=== PATIENT | male | born 1965 | race Asian ===

== ENCOUNTER → 2020-10-03 09:09 | Outpatient (CLI) | payer OTHER, SELFPAY ==
--- NOTE | 2020-10-03 | DI.US.S_ITS ---
PROCEDURE: US ABDOMEN COMPLETE INDICATIONS: GASTROESOPHAGEAL REFLUX DISEASE AND GALLSTONES TECHNIQUE: Real-time scanning was performed of the abdominal and retroperitoneal organs, with image documentation. COMPARISON: None. FINDINGS: Liver: Liver is normal in size and homogeneous in echotexture. Gallbladder: The gallbladder contains multiple layering gallstones/sludge. A non mobile stone is noted within the gallbladder neck measuring 7 x 6 millimeters. Biliary ducts: Intrahepatic bile ducts are non-dilated. Extrahepatic bile duct caliber measures 4.4 millimeters. Normal is 6-7 mm or less in diameter, or 10 mm or less post-cholecystectomy. Pancreas: Visualized portions of the pancreas are sonographically normal. Spleen: Spleen is normal in size and homogeneous in echotexture. Kidneys: Kidneys are normal in size and echotexture. Right kidney measures 9.7 cm long; left kidney measures 10.2 cm long. No hydronephrosis or nephrolithiasis. No solid masses. The right kidney has a simple cyst measuring 8 x 11 x 9 millimeters Aorta: Visualized aorta is normal in caliber at less than 3 cm. Iliacs: Proximal common iliac arteries are normal in caliber at less than 2.5 cm. IVC: Intrahepatic inferior vena cava is patent. Miscellaneous: No free abdominal fluid. IMPRESSION: 1. Cholelithiasis without evidence of acute cholecystitis. 2. Simple cyst of the right kidney. Dictated by: Oscar Head M.D. on 10/03/2020 at 12:30 Approved by: Oscar Head M.D. on 10/03/2020 at 12:33
== END ==
PROVIDERS: PCP Family Medicine; Referring Provider Family Medicine; Visit Provider Family Medicine
DX: K80.20 Calculus of gallbladder without cholecystitis without obstruction (principal); K21.9 Gastro-esophageal reflux disease without esophagitis; N28.1 Cyst of kidney, acquired
CPT/HCPCS: 76700

== ENCOUNTER → 2020-10-31 11:15 | Outpatient (CLI) | payer OTHER, SELFPAY ==
[2020-10-31 12:57] LABS: COVID19 -Nasal RAPID Negative (Negative)
== END ==
PROVIDERS: PCP Family Medicine; Visit Provider Surgery
DX: Z01.812 Encounter for preprocedural laboratory examination (principal); Z20.822 Contact with and (suspected) exposure to COVID-19
CPT/HCPCS: 87635; C9803

== ENCOUNTER 2020-11-01 05:56 | Day surgery (SDC) | payer OTHER, SELFPAY ==
[2020-11-01] VITALS (13 sets, daily range): BP systolic 119–154; BP diastolic 65–91; PULSE 63–81; RESP 10–100; TEMP 36.6–37.6; O2SAT 11–100; BMI 19.1
--- NOTE | 2020-11-01 | PATH_ITS ---
[facility] Accession Number: [id number] . 01 Material submitted: . gallbladder - GALLBLADDER . 01 Clinical history: . LAP JESSIKA . 02 Diagnosis: Gallbladder, Cholecystectomy: Chronic cholecystitis, cholesterolosis, and cholelithiasis. MRV 11/03/2020 1403 Local . 02 Electronically signed: . Pam Pinedo MD, Pathologist NPI- [id number] . 01 Gross description: . The specimen is received in formalin, labeled gallbladder and consists of an 8.2 x 3.0 x 3.0 cm intact gallbladder with a 0.2 cm in diameter cystic duct. The serosa is kay-green and smooth. Opening reveals green viscous bile with multiple black bosselated choleliths ranging from 0.1 to 1.0 cm and measuring 5.5 x 3.0 x 1.0 cm in aggregate. The mucosa is villalta-green and velvety and the wall thickness measures 0.2 cm. Cardiac Surgeon sections are submitted to include the en face cystic duct margin (blue) in cassette A1. ([id number]) /MRV 11/02/2020 1118 Local . 02 Pathologist provided ICD-10: K81.1, K80.60 . 02 CPT . 929906 Performed at: 01 [facility] [address], [place], [place] [id number] MD Saad Sexton MD Phone: [phone] Performed at: 02 [facility] [address] [place], [place] [id number] MD Nyasia Bartlett MD Phone: [phone]
[2020-11-01] MEDS: LACTATED RINGERS 1,000 ML 42 ML IV (07:06)
[2020-11-01] MEDS: ACETAMINOPHEN 325 MG TABLET 975 MG PO (07:06)
--- NOTE | 2020-11-01 07:44 | PM.PREOP ---
Pre-operative Note Interval Note History & Physical reviewed/Exam performed by Physician: Yes Changes to H&P: No
[2020-11-01] MEDS: CEFAZOLIN 2 GM/100 ML FROZ.PIGGY IV (07:50)
--- NOTE | 2020-11-01 08:10 | SUR.OPER ---
Supine on padded OR bed, head on pillow, safety belt at thigh, left arm padded and tucked at side. Right arm secured on padded arm oard <90 degrees abduction. Legs uncrossed. Padded footboard in place. Tape over blanket to secure lower legs.
--- NOTE | 2020-11-01 08:13 | SUR.PREOP ---
Late entry: Pt here with sister, sister here to help pt understanding instructions as he speaks tagalgo, but she states he understands Portuguese as well. Pt stated he had understood all that was said and sister verified this as well.
[2020-11-01] MEDS: BUPIVACAINE 0.25% (PF) VIAL 30 ML INJ (08:15)
[2020-11-01] MEDS: LACTATED RINGERS 1,000 ML 120 ML IV (08:54)
--- NOTE | 2020-11-01 09:13 | PM.OP.1 ---
Operative Date/Time/Diagnoses Date of procedure: 11/01/20 Time of procedure: 09:13 Pre-op diagnosis: Biliary colic Post-op diagnosis: same Procedure & Clinicians Procedure: Laparoscopic cholecystectomy Same procedure as scheduled: Yes Indications: 55-year-old man biliary colic here for elective cholecystectomy Surgeon: Ernesto Dinh Anesthesia Type: General Operative Notes Findings: Chronic cholecystitis Specimen(s): other (Gallbladder) Estimated Blood Loss (mL): 50 Procedure in detail: The patient was placed supine on the table and bilateral lower extremity compression devices were applied. Anesthesia was induced they were intubated with an endotracheal tube and received 2g of Ancef. A time-out was performed. They were prepped and draped in sterile fashion. An infraumbilical incision was made, the umbilical stalk was elevated and the fascia was sharply incised entering the abdomen atraumatically. A blunt tip 12mm balloon trocar was then inserted, pneumoperitoneum was established and inspection of the abdomen demonstrated no evidence of injury. They were placed head up and right side up and then a 11 mm port was placed high in the epigastrium and two 5mm in the right upper quadrant. The gallbladder was plastered to the omentum and the duodenum was adherent to the gallbladder. The duodenum was carefully taken down with sharp dissection and protected out of harm's way. The omentum was divided with electrocautery. The gallbladder was grasped by the fundus and retracted over the liver and retracted laterally by the infundibulum. Using electrocautery the lateral plane between the gallbladder and the liver was opened towards the fundus. The gallbladder was then retracted laterally and the medial plane was developed in the same manner. With the gallbladder mobilized the bottom of the cystic plate was visualized. The hepatocystic triangle was meticulosly skeletonized using hook electrocautery of all fat and fibrous tissue from both the front and the back. Only two structures were then clearly seen entering the gallbladder the cystic duct and the cystic artery. With the critical view of safety fully established the cystic duct was clipped twice proximally and once distally using the 10 mm clip applied under direct visualization and then sharply divided. The cystic artery was divided in the same fashion. The gallbladder was removed from the liver bed using electro cautery. The liver bed was then inspected for hemostasis and this was achieved. The abdomen was irrigated with sterile saline and inspection was made that showed the clips in good position. The specimen was removed using Endo-Catch. The abdomen was desufflated. The umbilical fascia was closed with 0 Vicryl in a [id number] fashion under direct visualization. Skin incisions were irrigated and closed with 4-0 Monocryl. 30 ml of 0.25% bupivacaine was infiltrated into the subcutaneous tissue of the incisions. The wounds were sealed with Dermabond. Patient emerged from anesthesia was extubated and transferred to recovery in stable condition. The sponge and instrument count at the end of the operation was correct. Complications: none Post-operative Condition: stable Disposition: same day surgery
[2020-11-01] MEDS: fentaNYL 100 MCG/2 ML INJ IV (09:33)
[2020-11-01] MEDS: OXYCODONE IR 5 MG TABLET PO ×2 (09:48→11:15)
[2020-11-01] MEDS: ONDANSETRON 4 MG/2 ML INJ IV (11:15)
--- NOTE | 2020-11-01 11:42 | SUR.PHASEII ---
Late entry: Assumed care of pt, pt with myrtle hair continues. Paperwork needing to be signed by Dr. Dinh and work script needs clarification. Awaiting for MD to finish surgery. Pt's sister at bedside to help with translation. Pt voiced an understanding of what is being done. Report to ANGY Jaeger
--- NOTE | 2020-11-01 12:06 | SUR.PHASEII ---
Discharged patient home in stable condition with sister. Instructed sister to call surgeon's office to arrange a follow-up appointment. Provided detailed instructions regarding use of tylenol and ibuprofen in conjunction with oxycodone. Stressed the importance of using a stool softener. V/U.
== END 2020-11-01 12:04 | disposition home or self-care (01) ==
PROVIDERS: PCP Family Medicine; Referring Provider Surgery; Visit Provider Surgery
PROC: 0FT44ZZ Resection of Gallbladder, Percutaneous Endoscopic Approach (ICD-10-PCS; CPT 47562; principal; 2020-11-01 07:45)
DX: K80.10 Calculus of gallbladder with chronic cholecystitis without obstruction (principal); K21.9 Gastro-esophageal reflux disease without esophagitis; F17.210 Nicotine dependence, cigarettes, uncomplicated
CPT/HCPCS: 47562; 82962; J0330; J0690; J1100; J1885; J2250; J2405; J2704; J3010

== ENCOUNTER → 2021-02-15 11:00 | Outpatient (CLI) | payer OTHER, SELFPAY ==
[2021-02-15 12:21] LABS: COVID19 -Nasal RAPID Negative (Negative)
== END ==
PROVIDERS: PCP Family Medicine; Visit Provider Student in an Organized Health Care Education/Training Program
DX: Z01.812 Encounter for preprocedural laboratory examination (principal); Z20.822 Contact with and (suspected) exposure to COVID-19
CPT/HCPCS: 87635

== ENCOUNTER 2021-02-17 13:28 | Day surgery (SDC) | payer OTHER, SELFPAY ==
--- NOTE | 2021-02-17 | PATH_ITS ---
[facility] Accession Number: [id number] . 01 Material submitted: . colon - ASCENDING POLYPS, 6MM,3MM,3MM . 02 Diagnosis: Ascending Colon Polyps 6 mm, 3 mm, 3 mm, Biopsies: Tubular adenoma in two of five fragments. Benign lymphoid aggregate in one fragment. [facility] 02/21/2021 1546 Local . 02 Electronically signed: . Nyasia Bartlett MD, Pathologist NPI- [id number] . 01 Gross description: . The specimen is received in formalin, labeled ascending colon polyp, and consists of three villalta fragments of soft tissue measuring 0.8 x 0.7 x 0.2 cm in aggregate. The specimen is entirely submitted in cassette A1. (EA:[id number]) /[facility] 02/18/2021 1352 Local . 02 Pathologist provided ICD-10: D12.2 . 02 CPT . 177533 Performed at: 01 [facility] [address] [facility], [place], [place] [id number] MD Saad Sexton MD Phone: [phone] Performed at: 02 [facility] [address] [place], [place] [id number] MD Nyasia Bartlett MD Phone: [phone]
--- NOTE | 2021-02-17 12:07 | P.HP_ITS ---
History of Present Illness History of Present Illness Date Patient Seen: 02/17/21 Chief complaint: SCREENING COLONOSCOPY Narrative: 55 Years Old Male seen today for consideration of a screening colonoscopy. There have been no lower GI symptoms suggesting disease such as change in bowel habits, bleeding, abdominal pain or anemia. There's been no family history of colon cancer or colon polyps. Overall health issues have been stable, including no major cardiac events for at least 6 weeks. 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 Household Members: lives with sister Pia Gaytan no alcohol Patient History Medical History (Updated 10/31/20 @ 10:46 by Sherry Escalante RN) Gallstones GERD (gastroesophageal reflux disease) Family & Social History Family History (Updated 10/06/20 @ 09:21 by Malorie Hand RN) Father Hypertension Heart disease Gallstones Mother Hypertension Stroke Brother Heart disease Sister Heart disease Social History: household members family Tobacco & Substance use: Tobacco type cigarettes Smoking Status Current every day smoker alcohol intake current alcohol intake frequency holiday/special occasion Substance Use Type does not use Meds Home Medications and Allergies Home Medications Medication Instructions Recorded Confirmed Type ascorbate calcium (vitamin C) 500 500 mg PO DAILY 10/06/20 02/17/21 History mg tablet vitamin B complex 1 tab PO DAILY 10/06/20 02/17/21 History acetaminophen [Tylenol] 650 mg PO QID PRN #60 cap 11/01/20 02/17/21 Rx Allergies Allergy/AdvReac Type Severity Reaction Status Date / Time No Known Drug Allergies Allergy Verified 02/17/21 13:33 Review of Systems Review of Systems ROS: Yes All systems reviewed with the patient and are negative except as otherwise documented Exam Narrative Exam Narrative: General: well developed, well nourished, in no acute distress, Head: normocephalic and atraumatic, Lungs: normal respiratory effort, clear bilaterally to auscultation, no wheezes rales or rhonchi. Heart: normal rate and regular rhythm, no murmurs, rubs, gallops, or clicks, Abdomen: abdomen soft and non-tender without masses, organomegaly, or abdominal wall hernias, bowel sounds positive. Skin: intact without suspicious lesions or rashes, Psych: alert and cooperative; normal mood and affect; normal attention span and concentration; cognition, remote and recent memory appear to be intact, Assessment & Plan Assessment & Plan narrative: 1. Screening for colon cancer Plan for colonoscopy. The nature and character of the procedure as well as anticipated results were discussed. The possibility of not completing the procedure was also discussed. Possible complications including aspiration pneumonia, bleeding, perforation and reaction to medications either for sedation or preparation and missed lesions were discussed. Questions were answered and proceeding to the colonoscopy was elected. Informed consent signed. I sincerely appreciate the referral allowing me to participate in this patient's care. Please contact me with any questions or concerns.
--- NOTE | 2021-02-17 12:08 | PM.OP.ENDO ---
Operative Date/Time/Diagnoses Date of procedure: 02/17/21 Procedure Notes SCOAP/Timeout: 2:46 p.m. Procedure in detail: ENDOSCOPIST: Martha Benson MD Sedation RN: Oliva Conklin RN Sedation start time: 2:47 p.m. Sedation end time: 1:10 p.m. PROCEDURE: Colonoscopy with biopsy, cold INDICATIONS: 1. Screening for colon cancer MEDICATION: Levsin 0.125 mg sublingual, incremental doses of Versed and fentanyl until appropriate level sedation achieved. ASA CLASS: 2 CECAL WITHDRAWAL TIME: 16 minutes COMPLICATIONS: None. EXTENT OF PROCEDURE: Cecum. QUALITY OF PREP: Good with portions of liquid stool. PROCEDURE: Prior to insertion of the colonoscope, a digital rectal examination was accomplished with circumferential palpation of the distal rectal mucosa without significant findings being noted. The high-definition pediatric colonoscope was passed into the rectum in the usual fashion and advanced over to the cecum without difficulty. The ileocecal valve, appendiceal stoma, and medial wall all could be inspected and no abnormalities were seen. ASCENDING COLON: As the colonoscope was withdrawn, care was taken to expose and inspect the haustral folds and 3 small polyps ranging between 3 and 6 mm were removed with cold biopsy forceps, excellent hemostasis. HEPATIC FLEXURE: Normal, no polyps, diverticula or other abnormalities. TRANSVERSE COLON: Normal, no polyps, diverticula or other abnormalities. DESCENDING COLON: Normal, no polyps, diverticula or other abnormalities. SIGMOID COLON: Normal, no polyps, diverticula or other abnormalities. RECTUM: Normal. J maneuver was produced. There was no significant perianal disease. The J maneuver was broken. The remainder of the rectum was inspected and there was no external hemorrhoid disease. The scope was withdrawn. IMPRESSION: 1. Ascending polyp x3, 3-6 mm, removed with cold biopsy forceps PLAN: 1. Follow-up in clinic status post pathology results. The possibility of a missed lesion including a malignancy has been discussed with the patient previously. Potential alarm symptoms have been discussed and should be reported immediately.
[2021-02-17 13:40] VITALS: BP 125/79; PULSE 59; RESP 12; TEMP 36.9; O2SAT 100; BMI 20.3
[2021-02-17] MEDS: LACTATED RINGERS 1,000 ML 200 ML IV (13:49)
[2021-02-17] MEDS: HYOSCYAMINE 0.125 MG TABLET PO (13:49)
[2021-02-17] MEDS: fentaNYL 250 MCG/5 ML INJ IV (14:54)
[2021-02-17] MEDS: MIDAZOLAM 5 MG/5 ML VIAL IV (14:54)
[2021-02-17 15:14] VITALS: BP 114/66; PULSE 59; RESP 16; TEMP 36.4; O2SAT 99
[2021-02-17 15:22] VITALS: BP 108/67; PULSE 61; RESP 16; O2SAT 98
[2021-02-17 15:29] VITALS: BP 106/69; PULSE 56; RESP 14; TEMP 36.7; O2SAT 99
[2021-02-17 15:52] VITALS: BP 116/77; PULSE 60; RESP 13; TEMP 36.6; O2SAT 98
== END 2021-02-17 15:41 | disposition home or self-care (01) ==
PROVIDERS: PCP Family Medicine; Referring Provider Student in an Organized Health Care Education/Training Program; Visit Provider Student in an Organized Health Care Education/Training Program
PROC: 0DJD8ZZ Inspection of Lower Intestinal Tract, Via Natural or Artificial Opening Endoscopic (ICD-10-PCS; CPT 45378; principal; 2021-02-17 14:30)
DX: Z12.11 Encounter for screening for malignant neoplasm of colon (principal); F17.210 Nicotine dependence, cigarettes, uncomplicated; K21.9 Gastro-esophageal reflux disease without esophagitis; D12.2 Benign neoplasm of ascending colon
CPT/HCPCS: 45380; J2250; J3010

== ENCOUNTER → 2022-04-16 09:39 | Outpatient (CLI) | payer OTHER, SELFPAY ==
--- NOTE | 2022-04-16 | DI.ECHO.S_ITS ---
[facility] +---------+ : : [address] : : : : [id number] : : : : Phone: [phone]---------+ Echocardiogram Report + + :Name: AIDEN PRITCHARD Study Date: 04/16/2022 Height: 66 in : :[facility] ReadingLocation: Weight: 120 lb : : Gender: Male BSA: 1.6 m2 : :: 1965 Age: 56 yrs BP: 128/84 mmHg: :Reason For Study: Dizziness : :Ordering Physician: CAYLA, : :KEREN Performed By: Brenden Phillips : :Referring: KEREN KULKARNI : + + Interpretation Summary Left ventricular systolic function is low normal. The ejection fraction is estimated to be 50-55%. There are no obvious focal wall motion abnormalities noted but poor endocardial definition reduces the sensitivity for the detection of such. There is no significant valvular heart disease. Procedure: A two-dimensional transthoracic echocardiogram with color flow and Doppler was performed. The study quality was technically adequate. There is no prior echocardiogram noted for this patient. The patient was in normal sinus rhythm during the exam. Left Ventricle: The left ventricle is normal in size and wall thickness. Left ventricular systolic function is low normal. The ejection fraction is estimated to be 50-55%. There are no obvious focal wall motion abnormalities noted but poor endocardial definition reduces the sensitivity for the detection of such. Diastolic function could not be accurately assessed due to unobtainable data. Right Ventricle: The right ventricle is normal in size and function. Atria: Both atria are normal in size. The interatrial septum grossly appears intact with no obvious evidence for an atrial septal defect. Mitral Valve: The mitral valve is normal in structure and function. There is trace mitral regurgitation. Aortic Valve: The aortic valve is normal in structure and function. No aortic regurgitation is present. Tricuspid Valve: The tricuspid valve is normal in structure and function. No tricuspid regurgitation. Pulmonary artery pressures cannot be estimated because of the lack of a measurable TR jet velocity. Pulmonic Valve: The pulmonic valve is normal in structure and function. There is no pulmonic valvular regurgitation. Great Vessels: The aortic root is normal size. The dimensions of the ascending aorta are normal. The IVC is of normal diameter and collapses greater than 50% with a sniff. This suggests a low right atrial pressure of 3 mm Hg. Pericardium/ Pleura There is no pericardial effusion. There is no pleural effusion. MMode/2D Measurements & Calculations LVIDd: 5.0 cm LVOT diam: 2.2 cm LVIDs: 3.5 cm Ao root diam: 3.2 cm FS: 30.0 % asc Aorta Diam: 3.3 cm IVSd: 0.90 cm LVPWd: 0.90 cm LV joseph. diameter/BSA (cm/m^2): 3.1 LV sys. diameter/BSA (cm/m^2): 2.2 LA dimension: 3.0 cm RA long axis: 3.9 cm LA A2 area: 16.2 cm2 LA A4 area: 12.9 cm2 LA length (vol): 5.1 cm LA vol: 34.9 ml LA vol index: 21.7 ml/m2 LVLs ap4: 6.4 cm LVLd ap2: 7.1 cm LVLs ap2: 6.0 cm TAPSE_phl: 2.1 cm Doppler Measurements & Calculations Ao V2 max: 106.0 cm/sec LVOT Max Patrick: 69.8 cm/sec Ao V2 mean: 78.6 cm/sec LV V1 max P.9 mmHg Ao max P.0 mmHg LV V1 VTI: 15.6 cm Ao mean P.0 mmHg LAMBERT(I,D): 2.7 cm2 Ao V2 VTI: 22.0 cm LAMBERT(V,D): 2.5 cm2 sev ratio: 0.71 LAMBERT indexed to BSA (cm^2/m^2): 1.7 MV E max patrick: 73.7 cm/sec SV(LVOT): 59.3 ml MV A max patrick: 63.0 cm/sec MV E/A: 1.2 Med Peak E' Patrick: 7.9 cm/sec E/E' med: 9.3 Lat Peak E' Patrick: 9.5 cm/sec E/E' lat: 7.8 E/e' average: 8.5 MV dec time: 0.22 sec AV VR_phl: 0.66 MV P1/2t-pr_phl: 64.0 msec Reading Physician:10:38 AM
== END ==
PROVIDERS: PCP Family Medicine; Referring Provider Family Medicine; Visit Provider Family Medicine
DX: I95.1 Orthostatic hypotension (principal); R42 Dizziness and giddiness
CPT/HCPCS: 93306

== ENCOUNTER → 2022-10-09 08:35 | Outpatient (CLI) | payer OTHER, SELFPAY ==
--- NOTE | 2022-10-09 | DI.MRI.S_ITS ---
PROCEDURE: MR HEAD/BRAIN WO/W CON INDICATIONS: Unspecified convulsions TECHNIQUE: Noncontrast axial T1 spin echo, axial T2 fast spin echo, sagittal and axial FLAIR, coronal T2 fast spin echo, axial gradient echo, axial diffusion and ADC through the brain. After the administration of contrast, axial and coronal and sagittal T1 spin echo with fat saturation through the brain. COMPARISON: None. FINDINGS: Image quality: Excellent. CSF spaces: Basal cisterns are patent. No extra-axial fluid collections. Ventricles are normal in size and shape. Brain: No midline shift. No intracranial bleeds or masses. No abnormal intracranial enhancement. There is cerebral volume loss for age. There is periventricular white matter chronic small vessel ischemic change. The brainstem appears normal. Diffusion-weighted images demonstrate no acute ischemic insults. No chronic ischemic insults. Normal intravascular flow voids are present. Skull and face: Calvarial marrow is normal in signal. Orbits appear normal. Sinuses: Sinuses and mastoids appear clear. IMPRESSION: 1. Volume loss and small vessel ischemic disease. 2. No acute process. No recent infarct. Dictated by: Cally Mckeon M.D. on 10/09/2022 at 10:36 Approved by: Cally Mckeon M.D. on 10/09/2022 at 10:37
== END ==
PROVIDERS: PCP Family Medicine; Referring Provider Family Medicine; Visit Provider Family Medicine
DX: R56.9 Unspecified convulsions (principal)
CPT/HCPCS: 70553